=== PATIENT | female | born 1980 | race Asian ===

== ENCOUNTER → 2016-07-26 | Outpatient (CLI) | payer OTHER ==
[~2016-07-26] MED LIST: ISOVUE-370 76% 100ML VIAL (Q9967) As Ordered ONE
--- NOTE | 2016-07-26 16:38 | REP ---
HYSTEROSALPINGOGRAM: The patient's cervix was catheterized by the referring clinician who also injected contrast. I obtained spot radiographs. No definite filling defect is seen in the uterus. There bilateral visualization of nondilated fallopian tubes and free intraperitoneal spillage bilaterally compatible with bilateral fallopian tube patency. IMPRESSION: There is bilateral fallopian tube patency as described above. 15 seconds fluoroscopy time utilized for the procedure. Signed by Oscar Fuller MD 07/26/2016 05:07 P
--- NOTE | 2016-07-27 07:52 | RO ---
DATE OF PROCEDURE: 07/26/2016 PREOPERATIVE DIAGNOSIS: Secondary infertility AMA. POSTOPERATIVE DIAGNOSIS: Secondary infertility AMA. OPERATION PROPOSED: Hysterosalpingogram. OPERATION PERFORMED: Hysterosalpingogram. SURGEON: Keaton Blancas MD STEAM TABLE ATTENDANT: ANESTHESIA: None. This lady is secondary infertility and AMA was booked for hysterosalpingogram. ESTIMATED BLOOD LOSS: Zero. DESCRIPTION OF PROCEDURE: After discussion with the patient regarding hysterosalpingogram the risks and benefits, a risk of perforation, bleeding, infertility secondary to infection, the patient agreed to have the hysterosalpingogram. Quantitative beta hCG was zero. Last period 07/12/2016. Patient was placed in lithotomy position on the table. A sterile sheath was placed underneath the patient's bottom. Sterile speculum was placed in the vagina. Cervix was brought into view anteriorly. It was swabbed with disinfectant. A single-tooth tenaculum placed on the anterior lip of the cervix. Uterus sounded to 7 cm. The patient was quizzed in regarding to allergies. She had no allergies. The hysterosalpingogram tube was placed into the uterine cavity with dye. The dye was pushed through the cavity into the uterus. The uterus itself was normal size, retroverted, retroflexed. Both tubes filled to the fimbriated end. Both tubes spilled easily with dye. No evidence of stricture. The single-tooth tenaculum was removed. The Quiñones catheter was removed. The speculum was removed. The patient was then sent on her way after appropriate interval. The patient was feeling well and she is to followup with Dr. Pride, her physician.
== END ==
LOC: M RADPRO 12:32
PROVIDERS: ATTEND Obstetrics & Gynecology
DX: N97.9 Female infertility, unspecified (principal)
CPT/HCPCS: 58340; 74740; Q9967